=== PATIENT | female | born 1985 | race Caucasian/White ===

== ENCOUNTER 2018-10-11 22:52 | Emergency (ER) | payer SELFPAY ==
--- NOTE | 2018-10-11 22:57 | NUR ---
2257---PT CALLED TO BE TRIAGED, PT STATES WAIT IS TOO LONG. PATIENT LEFT WITHOUT BEING SEEN BY DR. MAURICIO. NO FURTHER CARE PROVIDED FOR PATIENT.
== END 2018-10-11 22:57 | disposition left against medical advice (07) ==
LOC: MED 22:52
DX: K08.89 Other specified disorders of teeth and supporting structures (principal); Z53.21 Procedure and treatment not carried out due to patient leaving prior to being seen by health care provider

== ENCOUNTER 2018-10-15 17:37 | Emergency (ER) | payer SELFPAY ==
[~2018-10-15] VITALS: Ht 167.6 cm; Wt 85.3 kg
[2018-10-15 17:42] VITALS: BP 168/109
--- NOTE | 2018-10-15 17:48 | NUR ---
PT TRIAGED, FLU SWAB PERFORMED URINE CUP GIVEN
--- NOTE | 2018-10-15 19:50 | NUR ---
PT PRESENTS TO ER. AOX4 ABLE TO VERBALIZE NEEDS. CC: COUGHING 3DAYS. EVEN UNLABORED BREATHING. NO HX. NO RX. ABD PAIN 04/20. BED IN LOWEST POSITION. CONTINUE TO MONITOR.
[2018-10-15] MEDS ORDERED: KETOROLAC 60 MG/2 ML VIAL IM ONE (20:00)
[2018-10-15 20:28] VITALS: BP 168/109
--- NOTE | 2018-10-15 20:29 | NUR ---
Patient discharged with v/s stable. Written and verbal after care instructions given and explained. Patient alert, oriented and verbalized understanding of instructions. Ambulatory with steady gait. All questions addressed prior to discharge. ID band removed. Patient advised to follow up with PMD. Rx of PROMETHAZINE , MOTRIN 800MG given. Patient educated on indication of medication including possible reaction and side effects. Opportunity to ask questions provided and answered.
== END 2018-10-15 20:35 | disposition home or self-care (01) ==
LOC: MED 17:37
DX: J06.9 Acute upper respiratory infection, unspecified (principal); Z90.49 Acquired absence of other specified parts of digestive tract
CPT/HCPCS: 87804; 96372; 99283; J1885

== ENCOUNTER 2018-10-19 04:25 | Emergency (ER) | payer MEDICAID ==
[~2018-10-19] VITALS: Ht 167.6 cm; Wt 81.6 kg
[2018-10-19 04:31] VITALS: BP 151/100
--- NOTE | 2018-10-19 04:35 | NUR ---
PT TAKEN TO BED 8
--- NOTE | 2018-10-19 04:45 | NUR ---
32/F PRESENTS TO ED, C/O SORE THROAT AND PRODUCTIVE COUGH X4 DAYS, WORSENING SINCE 2 DAYS AGO. REPORTS MILD NAUSEA AND HEADACHE. PT DENIES FEVER OR VOMITING. PT REPORTS THAT SHE WAS SEEN IN [facility] 1 WEEK AGO FOR "MOUTH ABSCESS," STILL FINISHING RX PCN. DENIES MED HX
[2018-10-19] MEDS ORDERED: DEXAMETHASONE 10 MG/ML VIAL PO ONE (05:15)
[2018-10-19] MEDS ORDERED: KETOROLAC 30 MG/ML VIAL IM ONE (05:15)
[2018-10-19 06:11] VITALS: BP 147/96
== END 2018-10-19 06:11 | disposition home or self-care (01) ==
LOC: MED 04:25
DX: J02.9 Acute pharyngitis, unspecified (principal)
CPT/HCPCS: 87081; 87804; 96372; 99283; J1100; J1885

== ENCOUNTER 2018-12-26 23:05 | Emergency (ER) | payer MEDICAID ==
[~2018-12-26] VITALS: Ht 167.6 cm; Wt 85.7 kg
[2018-12-26 23:06] VITALS: BP 159/92
--- NOTE | 2018-12-26 23:09 | NUR ---
TO ED 04 WITH STEADY GAIT.
--- NOTE | 2018-12-26 23:15 | NUR ---
PT BIB SELF C/O DYSURIA AND FREQUENCY. PT STATES DYSURIA, FREQUENCY AND OLIGURIA X4 DAYS. PT STATES 6/10 PAIN W/URINATION; SUPRAPUBIC TENDERNESS UPON PALPATION. PT ACTING APPROPRIATLY. PT SPEAKING IN CLEAR AND COMPLETE SENTENCES. PMH: DENIES
[2018-12-26] MEDS ORDERED: CIPROFLOXACIN 250 MG TAB PO ONE (23:25)
[2018-12-26 23:45] VITALS: BP 148/89
--- NOTE | 2018-12-26 23:45 | NUR ---
Patient discharged with v/s stable. Patient acting appropriatly, patient states she is ready to go home. Written and verbal after care instructions given and explained. Patient alert, oriented and verbalized understanding of instructions. Ambulatory with steady gait. All questions addressed prior to discharge. ID band removed. Patient advised to follow up with PMD. Rx of Ciprofloxacin Hydrochloride given. Patient educated on indication of medication including possible reaction and side effects. Opportunity to ask questions provided and answered.
== END 2018-12-26 23:45 | disposition home or self-care (01) ==
LOC: MED 23:05
DX: N39.0 Urinary tract infection, site not specified (principal); R03.0 Elevated blood-pressure reading, without diagnosis of hypertension
CPT/HCPCS: 81002; 81025; 99283

== ENCOUNTER 2019-01-31 21:23 | Emergency (ER) | payer MEDICAID ==
[~2019-01-31] VITALS: Ht 170.2 cm; Wt 83.0 kg
[2019-01-31 21:31] VITALS: BP 153/87
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
[2019-01-31 22:11] VITALS: BP 153/87
== END 2019-01-31 22:11 | disposition home or self-care (01) ==
LOC: MED 21:23
DX: L84 Corns and callosities (principal); M79.674 Pain in right toe(s)
CPT/HCPCS: 73660; 99283

== ENCOUNTER 2019-04-18 23:08 | Emergency (ER) | payer BC, MEDICAID ==
[~2019-04-18] VITALS: Ht 170.2 cm; Wt 83.6 kg
[2019-04-18 23:13] VITALS: BP 139/91
--- NOTE | 2019-04-18 23:15 | NUR ---
TRIAGE COMPLETE. VSS. OKAY TO WAIT IN LOBBY FOR BED PLACEMENT.
[2019-04-18 23:53] LABS: BILIRUBIN,URINE 1+ (NEGATIVE); BLOOD, URINE TRACE-I (NEGATIVE); COLOR,URINE YELLOW (YELLOW); LEUKOCYTE ESTERASE ,URINE 2+ (NEGATIVE); NITRITE, URINE NEGATIVE (NEGATIVE); PH,URINE 5.5 (5.0-9.0); UGLUCOSE NEGATIVE (NEGATIVE)
[2019-04-19 00:01] LABS: APPEARANCE,URINE CLOUDY (CLEAR)
[2019-04-19 00:14] LABS: RBC,URINE 0-5 /HPF (0-5)
--- NOTE | 2019-04-19 01:56 | NUR ---
33 Y/O PATIENT C/O DYSURIA, URINARY URGENCY X 3 DAYS. PATIENT STATES THAT SHE GET CHILLS WITH BURNING SENSATIONS WHEN SHE URINATES. PAIN IS A 7/10 BURNING PAIN THAT DOES NOT RADIATE. NO LOWER BACK PAIN NOTED. PATIENT TAKES MOTRIN FOR THE PAIN WITHOUT ANY RELIEF. ERMD MADE AWARE OF STATUS. SIDE RAILS X1. PMH: NONE ALLERGIES: NKDA RX:NONE
[2019-04-19] MEDS ORDERED: CEPHALEXIN 500 MG CAP PO ONE (02:35)
[2019-04-19 03:03] VITALS: BP 139/91
--- NOTE | 2019-04-19 03:03 | NUR ---
DPatient discharged with v/s stable. Written and verbal after care instructions given and explained. Patient alert, oriented and verbalized understanding of instructions. Ambulatory with steady gait. All questions addressed prior to discharge. ID band removed. Patient advised to follow up with PMD. Rx of PYRIDIUM 100MG TABLET; KEFLEX 500MG CAPSULE given. Patient educated on indication of medication including possible reaction and side effects SUCH ORANGE URINE FROM PYRIDIUM; WIPING FRONT TO BACK TO PREVENT FURTHER INFECTION, AND THE IMPORTANCE OF DRINKING WATER. Opportunity to ask questions provided and answered.
== END 2019-04-19 03:03 | disposition home or self-care (01) ==
LOC: MED 23:08
DX: N39.0 Urinary tract infection, site not specified (principal)
CPT/HCPCS: 81001; 81002; 81025; 87086; 99283

== ENCOUNTER 2019-09-08 18:08 | Emergency (ER) | payer BC ==
[~2019-09-08] VITALS: Ht 170.2 cm; Wt 77.1 kg
[2019-09-08 18:19] VITALS: BP 136/87
--- NOTE | 2019-09-08 18:25 | NUR ---
WAIT AT LOBBY.
--- NOTE | 2019-09-08 18:46 | NUR ---
PT AMBULATED TO BED
--- NOTE | 2019-09-08 18:56 | NUR ---
BIB SELF EPIGASTRIC PAIN/ N/V/D X3 DAYS. UPPER ABD PAIN 8/10, SHARP, CRAMPING. BOWEL SOUNDS NORMOACTIVE. ABD NON DISTENDED/ SOFT/ NON TENDER. CAP REFILL <3. DENIES SOB/ CP. RESP EVEN AND UNLABORED. LUNG SOUNDS CLEAR IN BILAT LOBES. AAOX4. SKIN INTACT/ DRY/ COOL. PATIENT AMBULATED TO BATHROOM TO PROVIDE URINE SAMPLE. NO PMH NKA
[2019-09-08] MEDS ORDERED: DICYCLOMINE HCL LIQUID 20 MG, ALUMINUM HYD/MAG/SIMETHICONE 30 ML, LIDOCAINE VISCOUS 2% ... PO ONE ×3 (19:05)
[2019-09-08] MEDS ORDERED: ONDANSETRON 4 MG ODT PO ONE (19:05)
[2019-09-08] MEDS ORDERED: KETOROLAC 30 MG/ML VIAL IM ONE (19:05)
[2019-09-08] MEDS ORDERED: DICYCLOMINE HCL LIQUID 10 MG/5 ML UDC ONE (19:09)
[2019-09-08] MEDS ORDERED: LIDOCAINE VISCOUS 2% 20 ML UDC ONE (19:09)
[2019-09-08] MEDS ORDERED: ALUMINUM HYD/MAG/SIMETHICONE 30 ML UDC ONE (19:09)
[2019-09-08 19:24] LABS: BASOPHILS # (AUTO) 0.1 K/uL (0.00-0.22); BASOPHILS % (AUTO) 0.8 % (0.0-2.0); EOSINOPHILS # (AUTO) 0.2 K/uL (0-0.4); EOSINOPHILS % (AUTO) 2.6 % (0.0-4.0); HEMATOCRIT 42.1 % (36-48); HEMOGLOBIN 13.7 g/dL (12.0-16.0); LYMPHOCYTES # (AUTO) 2.3 K/uL (2.5-16.5); LYMPHOCYTES % (AUTO) 32.9 % (20.5-51.1); MEAN CORPUSCULAR HEMOGLOBIN 29 pg (27-31); MEAN CORPUSCULAR HGB CONC 33 g/dL (33-37); MEAN CORPUSCULAR VOLUME 88.4 fL (80-94); MONOCYTES # (AUTO) 0.6 K/uL (0.8-1.0); MONOCYTES % (AUTO) 8.5 % (1.7-9.3); NEUTROPHILS # (AUTO) 3.8 K/uL (1.8-7.7); NEUTROPHILS % (AUTO) 55.2 % (42.2-75.2); PLATELET COUNT (AUTO) 282 K/uL (140-450); RED BLOOD CELL COUNT(AUTO) 4.76 MIL/uL (4.20-5.40); RED CELL DISTRIBUTION WIDTH 12.5 % (11.6-13.7)
[2019-09-08 19:36] LABS: APPEARANCE,URINE CLOUDY (CLEAR); BILIRUBIN,URINE NEGATIVE (NEGATIVE); BLOOD, URINE NEGATIVE (NEGATIVE); COLOR,URINE AMBER (YELLOW); LEUKOCYTE ESTERASE ,URINE TRACE (NEGATIVE); NITRITE, URINE NEGATIVE (NEGATIVE); UGLUCOSE NEGATIVE (NEGATIVE)
[2019-09-08 19:40] LABS: BARBITURATE, URINE NEG. ng/ml (NEG <=200); BENZODIAZEPINE, URINE NEG. ng/mL (NEG <=200); CANNABINOID, URINE NEG. ng/mL (NEG <=50); COCAINE, URINE NEG. ng/mL (NEG <=300); OPIATE, URINE NEG. ng/mL (NEG <=2000); PHENCYCLIDINE SCREEN,URINE NEG. ng/mL (NEG <=25)
[2019-09-08 19:44] LABS: ALBUMIN 3.6 g/dL (3.4-5.0); ANION GAP 11.2 (8-16); CARBON DIOXIDE 30.9 mmol/L (21-32); POTASSIUM 4.1 mmol/L (3.5-5.1); TOTAL BILIRUBIN 0.1 mg/dL (0.0-1.0)
[2019-09-08 19:45] LABS: RBC,URINE 0-5 /HPF (0-5)
[2019-09-08 20:24] VITALS: BP 135/79
--- NOTE | 2019-09-08 20:25 | NUR ---
Patient discharged with v/s stable. Written and verbal after care instructions given and explained. Patient alert, oriented and verbalized understanding of instructions. Ambulatory with steady gait. All questions addressed prior to discharge. ID band removed. Patient advised to follow up with PMD. Rx of MYLANTA given. Patient educated on indication of medication including possible reaction and side effects. Opportunity to ask questions provided and answered.
== END 2019-09-08 20:25 | disposition home or self-care (01) ==
LOC: MED 18:08
DX: R11.2 Nausea with vomiting, unspecified (principal); R10.13 Epigastric pain; F15.10 Other stimulant abuse, uncomplicated; Z90.49 Acquired absence of other specified parts of digestive tract
CPT/HCPCS: 36415; 80053; 80305; 81001; 81025; 83690; 85025; 87086; 96372; 99283; J1885; Q0162

== ENCOUNTER 2019-09-10 21:00 | Emergency (ER) | payer BC ==
[~2019-09-10] VITALS: Ht 172.7 cm; Wt 84.8 kg
[2019-09-10 21:25] VITALS: BP 139/96
--- NOTE | 2019-09-10 21:30 | NUR ---
PT AMBULATED TO LOBBY
--- NOTE | 2019-09-10 22:12 | NUR ---
33 Y/O FEMALE PRESENTS TO ED, C/O TOOTH PAIN. PT STATES HAVING TOOTH EXTRACTED YESTERDAY. PT WAS RX MOTRIN 800 BUT NO RELIEF FOR PAIN. PAIN DOES NOT RADIATE. PT STATES PAIN IS 10/10, THROBBING. NO SOB/DIFFICULTY BREATHING NOTED. PT STABLE CONDITION. ALL QUESTIONS ANSWERED.
[2019-09-10] MEDS ORDERED: BUPIVACAINE-MPF 0.25% 30 ML VIAL INJ STA (23:48)
[2019-09-11 02:08] VITALS: BP 131/99
--- NOTE | 2019-09-11 02:08 | NUR ---
PT DISCHARGED WITH PAPERWORK. EDUCATED PT REGARDING MEDICATIONS AND D/C INSTRUCTIONS. PT VERBALIZED UNDERSTANDING OF TEACHING. TOLD PT TO FOLLOW UP WITH PCP AND WHEN TO RETURN TO ED. PT STABLE CONDITION. ALL QUESTIONS ANSWERED.
== END 2019-09-11 02:08 | disposition home or self-care (01) ==
LOC: MED 21:00
DX: K08.89 Other specified disorders of teeth and supporting structures (principal)
CPT/HCPCS: 99283; J3490

== ENCOUNTER 2019-09-13 15:26 | Emergency (ER) | payer BC ==
[~2019-09-13] VITALS: Ht 172.7 cm; Wt 81.6 kg
[2019-09-13 15:46] VITALS: BP 127/92
--- NOTE | 2019-09-13 15:52 | NUR ---
33 Y/O F C/C MEDICATION REFILL NORCO 5MG DUE TO DENTAL SX DONE TWO DAYS AGO, PER PT NOTHING WAS GIVEN AT THE DENTIST. PT NKA. HX NO. RX NO. NO N/V/D.
[2019-09-13] MEDS ORDERED: KETOROLAC 30 MG/ML VIAL IM ONE (17:40)
[2019-09-13 17:49] VITALS: BP 127/92
--- NOTE | 2019-09-13 17:50 | NUR ---
Patient discharged with v/s stable. Written and verbal after care instructions given and explained. Patient alert, oriented and verbalized understanding of instructions. Ambulatory with steady gait. All questions addressed prior to discharge. ID band removed. Patient advised to follow up with PMD. Rx of NORCO,IBUPROFEN given. Patient educated on indication of medication including possible reaction and side effects. Opportunity to ask questions provided and answered.
== END 2019-09-13 17:50 | disposition home or self-care (01) ==
LOC: MED 15:26
DX: K08.89 Other specified disorders of teeth and supporting structures (principal); G89.18 Other acute postprocedural pain; Z76.0 Encounter for issue of repeat prescription
CPT/HCPCS: 96372; 99283; J1885

== ENCOUNTER 2020-02-28 15:42 | Emergency (ER) | payer BC ==
[~2020-02-28] VITALS: Ht 165.1 cm; Wt 85.7 kg
[2020-02-28 15:47] VITALS: BP 150/95
--- NOTE | 2020-02-28 15:50 | NUR ---
Pt ambulated to lobby
--- NOTE | 2020-02-28 16:45 | NUR ---
PT SEEN AND EVALUATED BY PA, NO NURSING INTERVENTIONS NOTED
[2020-02-28 16:58] VITALS: BP 150/95
--- NOTE | 2020-02-28 16:58 | NUR ---
Patient discharged with v/s stable. Written and verbal after care instructions given and explained. Patient alert, oriented and verbalized understanding of instructions. Ambulatory with steady gait. All questions addressed prior to discharge. ID band removed. Patient advised to follow up with PMD. Rx of TRAMADOL, ZYRTEC given. Patient educated on indication of medication including possible reaction and side effects. Opportunity to ask questions provided and answered.
== END 2020-02-28 16:58 | disposition home or self-care (01) ==
LOC: MED 15:42
DX: M26.609 Unspecified temporomandibular joint disorder, unspecified side (principal); J30.9 Allergic rhinitis, unspecified; F17.200 Nicotine dependence, unspecified, uncomplicated; Z90.49 Acquired absence of other specified parts of digestive tract
CPT/HCPCS: 99283

== ENCOUNTER 2020-02-29 00:03 | Emergency (ER) | payer BC ==
[~2020-02-29] VITALS: Ht 170.2 cm; Wt 86.6 kg
[2020-02-29 00:08] VITALS: BP 156/83
--- NOTE | 2020-02-29 00:11 | NUR ---
PT AMBULATED TO BED #7
--- NOTE | 2020-02-29 00:12 | NUR ---
34 Y/O FEMALE C/O TOOTH PAIN. CAME IN TO THE ED EARLIER THIS AM AND REFUSED PAIN SHOT. TOOTH PAIN WAS WORSENING, THROBBING 10/10 PAIN THROUGHOUT THE NIGHT. PT ALSO STATED SHE HAS ITCHY "BUMPS AND RED SPOTS" THROUGHOUT HER BODY. NOTED ON HER ABDOMEN, BUE/BLE. PT ALSO TOOK AN IBUPROFEN, WHICH HAD NO RELIEF. PMH: DENIES NKA
--- NOTE | 2020-02-29 00:24 | NUR ---
Dr. Castro examining patient.
[2020-02-29] MEDS ORDERED: MORPHINE SULFATE 4 MG/ML SYR IM ONE (00:30)
[2020-02-29] MEDS ORDERED: CLINDAMYCIN 150 MG CAP PO ONE (00:30)
[2020-02-29 00:55] VITALS: BP 156/83
--- NOTE | 2020-02-29 00:55 | NUR ---
Patient discharged with v/s stable. Written and verbal after care instructions given and explained. Patient alert, oriented and verbalized understanding of instructions. Ambulatory with steady gait. All questions addressed prior to discharge. ID band removed. Patient advised to follow up with PMD. Rx of CLINDAMYCIN given. Patient educated on indication of medication including possible reaction and side effects. Opportunity to ask questions provided and answered.
== END 2020-02-29 00:55 | disposition home or self-care (01) ==
LOC: MED 00:03
DX: R68.84 Jaw pain (principal); K04.7 Periapical abscess without sinus
CPT/HCPCS: 96372; 99283; J2270

== ENCOUNTER 2020-02-29 07:00 | Emergency (ER) | payer BC ==
[~2020-02-29] VITALS: Ht 170.2 cm; Wt 81.6 kg
[2020-02-29 07:12] VITALS: BP 152/90
--- NOTE | 2020-02-29 07:15 | NUR ---
PT AMBULATED TO ER BED 11
--- NOTE | 2020-02-29 07:23 | NUR ---
34 Y/O F C/C RIGHT MANDIBLE PAIN X 1 WEEK. PER PT 05/20 PAIN, SHARP SENSATION, RADIATING TO THE RIGHT EAR, TALKING EXARCERBATES, NOTHING ALLEVIATES. DENIES TRAUMA. PT IN [facility] ER YESTERDAY FOR SAME C/C. NKA. NO HX. NO RX. NO NVD. SIDE RAIL X1.
[2020-02-29] MEDS ORDERED: CLINDAMYCIN 150 MG CAP PO ONE (07:40)
[2020-02-29] MEDS ORDERED: ONDANSETRON 4 MG ODT PO ONE (07:40)
[2020-02-29] MEDS ORDERED: oxyCODONE/APAP 5/325 MG 1 TAB TAB PO ONE (07:40)
[2020-02-29 08:06] VITALS: BP 142/84
--- NOTE | 2020-02-29 08:06 | NUR ---
Patient discharged with v/s stable. Written and verbal after care instructions given and explained. Patient alert, oriented and verbalized understanding of instructions. Ambulatory with steady gait. All questions addressed prior to discharge. ID band removed. Patient advised to follow up with PMD. Rx of PERCOCET given. Patient educated on indication of medication including possible reaction and side effects. Opportunity to ask questions provided and answered.
== END 2020-02-29 08:06 | disposition home or self-care (01) ==
LOC: MED 07:00
DX: K04.7 Periapical abscess without sinus (principal)
CPT/HCPCS: 99284; Q0162

== ENCOUNTER 2020-02-29 17:59 | Emergency (ER) | payer BC ==
[~2020-02-29] VITALS: Ht 170.2 cm; Wt 85.3 kg
[2020-02-29 18:12] VITALS: BP 163/100
--- NOTE | 2020-02-29 19:45 | NUR ---
PT AMBULATED TO BED 12 WITH STEADY GAIT
[2020-02-29 19:49] VITALS: BP 163/100
--- NOTE | 2020-02-29 19:56 | NUR ---
34 Y/O FEMALE C/O RIGHT EAR PAIN X 1 WEEK THAT IS THROBBING/STABBING/CONSTANT; PT SAW DENTIST RIGHT SIDE OF TEETH NEED DENTAL WORK BUT NO APPT UNTIL DENTIST INS IS AUTHORIZED, SO PT'S RIGHT EAR HAS BEEN IN PAIN; NO OTC PAIN MEDS TAKEN PRIOR TO ED ARRIVAL PER PT ; DENIES N/V/D; SKIN IS PINK/WARM/DRY; AAOX4 WITH EVEN AND STEADY GAIT;HR EVEN AND REGULAR; PT DENIES ANY FEVER, CP, SOB, OR COUGH AT THIS TIME; PATIENT STATES PAIN OF 10/10 AT THIS TIME; VSS; PATIENT POSITIONED FOR COMFORT; HOB ELEVATED; BEDRAILS UP X1; BED DOWN AND LOCKED. PMH: PT DENIES NKA
--- NOTE | 2020-02-29 20:16 | NUR ---
Dr. Noe examining patient.
[2020-02-29] MEDS ORDERED: KETOROLAC 60 MG/2 ML VIAL IM ONE (20:20)
== END 2020-02-29 20:55 | disposition home or self-care (01) ==
LOC: MED 17:59
DX: K08.89 Other specified disorders of teeth and supporting structures (principal); Z90.49 Acquired absence of other specified parts of digestive tract
CPT/HCPCS: 96372; 99283; J1885

== ENCOUNTER 2020-03-02 00:20 | Emergency (ER) | payer BC ==
[~2020-03-02] VITALS: Ht 172.7 cm; Wt 81.6 kg
[2020-03-02 00:30] VITALS: BP 163/107
--- NOTE | 2020-03-02 00:40 | NUR ---
PT AMBULATED TO BED 12.
--- NOTE | 2020-03-02 00:48 | NUR ---
RECEIVED A 34/F FROM TRIAGE WITH A C/O OF A TOOTHACHE. MILD SWELLING NOTED TO RIGHT SIDE OF FACE. NO DISCHARGE/DRAINAGE. PT HAS BEEN SEEN MULTIPLE TIMES AT [facility] ED FOR SIMILAR COMPLAINT. PT REPORTS SHE HASN'T FILLLED HER RX NORCO.
[2020-03-02] MEDS ORDERED: KETOROLAC 60 MG/2 ML VIAL IM ONE (00:55)
--- NOTE | 2020-03-02 01:15 | NUR ---
PT REPORTS RELIEF OF PAIN -- NOW RATES PAIN AT 5/10 AND FEELS OKAY FOR D/C.
[2020-03-02 01:21] VITALS: BP 163/107
--- NOTE | 2020-03-02 01:21 | NUR ---
Patient discharged with v/s stable. Written and verbal after care instructions given and explained. Patient verbalized understanding. Ambulatory with steady gait. All questions addressed prior to discharge. Advised to follow up with PMD.
== END 2020-03-02 01:21 | disposition home or self-care (01) ==
LOC: MED 00:20
DX: K08.89 Other specified disorders of teeth and supporting structures (principal); Z90.49 Acquired absence of other specified parts of digestive tract
CPT/HCPCS: 96372; 99283; J1885

== ENCOUNTER 2020-05-30 07:51 | Emergency (ER) | payer BC ==
[~2020-05-30] VITALS: Ht 170.2 cm; Wt 68.0 kg
[2020-05-30 07:54] VITALS: BP 144/79
--- NOTE | 2020-05-30 07:59 | NUR ---
Patient ambulated to bed 4. RN evaluating patient at bedside.
--- NOTE | 2020-05-30 08:03 | NUR ---
PT STATES THAT SHE FEELS LIKE MUCOUS IS STUCK IN HER THROAT AND UNABLE TO CLEAR IT OUT. STATES THAT HER THROAT FEELS DRY WELL.PT AOX4, AFIBRILE , AMBULATORY WITH STEADY GAIT , PINK PALPEBRAL CONJUNCTIVA ,ANICTERIC SCLERA , TONSILS NOT CONGESTED , ABLE TO SWALLOW , DENIES THROAT PAIN, N/V. , SCE , FLAT SOFT ABDOMEN. PMH- NONE RX- NONE
--- NOTE | 2020-05-30 08:06 | NUR ---
DR GONZALEZ AT BEDSIDE EVALUATING PT
[2020-05-30] MEDS ORDERED: ONDANSETRON 4 MG ODT PO ONE (08:15)
--- NOTE | 2020-05-30 08:39 | NUR ---
DR GONZALEZ AT BEDSIDE REEVALUATING PT.
[2020-05-30] MEDS ORDERED: ALUMINUM HYD/MAG/SIMETHICONE 30 ML UDC PO ONE (08:45)
[2020-05-30] MEDS ORDERED: PANTOPRAZOLE 40 MG TABEC PO ONE (08:45)
[2020-05-30] MEDS ORDERED: LIDOCAINE VISCOUS 2% 20 ML UDC PO ONE (08:45)
[2020-05-30] MEDS ORDERED: DICYCLOMINE HCL LIQUID 10 MG/5 ML UDC PO ONE (08:45)
--- NOTE | 2020-05-30 08:57 | NUR ---
PT REFUSED COCKTAIL MEDS FOR GERD , DR GONZALEZ INFORMED AND AWARE.
--- NOTE | 2020-05-30 09:08 | NUR ---
Dr. Beaver is evaluating the patient at bedside.
[2020-05-30 09:12] VITALS: BP 140/75
--- NOTE | 2020-05-30 09:13 | NUR ---
Patient discharged with v/s stable. Written and verbal after care instructions given and explained regarding GERD. Patient alert, oriented and verbalized understanding of instructions. Ambulatory with steady gait. All questions addressed prior to discharge. ID band removed. Patient advised to follow up with PMD. Rx of pantoprazole given. Patient educated on indication of medication including possible reaction and side effects. Opportunity to ask questions provided and answered.
== END 2020-05-30 09:13 | disposition home or self-care (01) ==
LOC: MED 07:51
DX: K21.9 Gastro-esophageal reflux disease without esophagitis (principal)
CPT/HCPCS: 99283; Q0162

== ENCOUNTER 2020-06-23 14:25 | Emergency (ER) | payer BC, MEDICAID ==
[~2020-06-23] VITALS: Ht 170.2 cm; Wt 86.2 kg
[2020-06-23 14:32] VITALS: BP 133/79
--- NOTE | 2020-06-23 14:38 | NUR ---
PT C/O NAUSEA AND GAMAL TEMPORAL THROBBING HEADACHE SINCE LAST NIGHT. DENIES FEVER, CHILLS, SOB, CP, COUGH, VOMITING OR DIARRHEA. PMH: CHOLECYSTECTOMY
[2020-06-23] MEDS ORDERED: ONDANSETRON 4 MG ODT PO ONE (15:30)
[2020-06-23] MEDS ORDERED: IBUPROFEN 400 MG TAB PO ONE (15:30)
[2020-06-23] MEDS ORDERED: ACETAMINOPHEN 325 MG TAB PO ONE (15:30)
[2020-06-23 16:35] VITALS: BP 118/71
== END 2020-06-23 16:35 | disposition home or self-care (01) ==
LOC: MED 14:25
DX: G44.209 Tension-type headache, unspecified, not intractable (principal); Z90.49 Acquired absence of other specified parts of digestive tract
CPT/HCPCS: 99284; Q0162

== ENCOUNTER 2020-07-05 11:17 | Emergency (ER) | payer MEDICAID ==
[~2020-07-05] VITALS: Ht 167.6 cm; Wt 79.4 kg
[2020-07-05 11:25] VITALS: BP 156/102
--- NOTE | 2020-07-05 11:30 | NUR ---
PT TAKEN TO BED 12.
--- NOTE | 2020-07-05 11:40 | NUR ---
UA COLLECTED AND PLACED IN DIRTY UTILITY ROOM.
[2020-07-05] MEDS ORDERED: ONDANSETRON 4 MG/2 ML VIAL IVP ONE ×2 (12:05→13:50)
[2020-07-05] MEDS ORDERED: NACL 0.9% 1,000 ML IV ONE (12:05)
[2020-07-05] MEDS ORDERED: FAMOTIDINE 20 MG/2 ML VIAL IVP ONE (12:05)
--- NOTE | 2020-07-05 12:23 | NUR ---
C/O OF N/V AND BODY DISCOMFORT 02/17. STATES SHE FEELS PALPITATIONS AFTER VOMITING, HR EVEN AND REGULAR, PATIENT DENIES ABDOMINAL PAIN, LAST BM YESTERDAY AND REGULAR FOR PATIENT, ABDOMEN IS NONTENDER TO PALPATION. 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
[2020-07-05 12:36] LABS: BASOPHILS # (AUTO) 0.1 K/uL (0.00-0.22); BASOPHILS % (AUTO) 0.8 % (0.0-2.0); EOSINOPHILS # (AUTO) 0.1 K/uL (0-0.4); EOSINOPHILS % (AUTO) 0.7 % (0.0-4.0); HEMATOCRIT 41.7 % (36-48); HEMOGLOBIN 13.8 g/dL (12.0-16.0); LYMPHOCYTES # (AUTO) 1.7 K/uL (2.5-16.5); LYMPHOCYTES % (AUTO) 23.2 % (20.5-51.1); MEAN CORPUSCULAR HEMOGLOBIN 29 pg (27-31); MEAN CORPUSCULAR HGB CONC 33 g/dL (33-37); MEAN CORPUSCULAR VOLUME 87.2 fL (80-94); MONOCYTES # (AUTO) 0.5 K/uL (0.8-1.0); MONOCYTES % (AUTO) 6.9 % (1.7-9.3); NEUTROPHILS % (AUTO) 68.4 % (42.2-75.2); PLATELET COUNT (AUTO) 280 K/uL (140-450); RED BLOOD CELL COUNT(AUTO) 4.78 MIL/uL (4.20-5.40); RED CELL DISTRIBUTION WIDTH 12.5 % (11.6-13.7); WHITE BLOOD COUNT (AUTO) 7.4 K/uL (4.8-10.8)
[2020-07-05 12:55] LABS: ANION GAP 12.1 (8-16); CARBON DIOXIDE 26.8 mmol/L (21-32); CREATININE 0.8 mg/dL (0.6-1.3); POTASSIUM 3.9 mmol/L (3.5-5.1); TOTAL BILIRUBIN 0.4 mg/dL (0.0-1.0)
[2020-07-05 14:20] VITALS: BP 128/87
--- NOTE | 2020-07-05 14:21 | NUR ---
Patient discharged with v/s stable. Written and verbal after care instructions given and explained. Patient alert, oriented and verbalized understanding of instructions. Ambulatory with steady gait. All questions addressed prior to discharge. ID band removed. Patient advised to follow up with PMD. Rx of ZOFRAN AND PEPCID given. Patient educated on indication of medication including possible reaction and side effects. Opportunity to ask questions provided and answered.
== END 2020-07-05 14:21 | disposition home or self-care (01) ==
LOC: MED 11:17
DX: K29.70 Gastritis, unspecified, without bleeding (principal); Z90.49 Acquired absence of other specified parts of digestive tract
CPT/HCPCS: 36415; 80053; 81025; 83690; 85025; 96361; 96374; 96375; 96376; 99284; J2405; J3490; J7030

== ENCOUNTER 2020-09-14 17:26 | Emergency (ER) | payer MEDICAID ==
[~2020-09-14] VITALS: Ht 172.7 cm; Wt 81.6 kg
[2020-09-14 17:38] VITALS: BP 171/100
--- NOTE | 2020-09-14 17:38 | NUR ---
Patient ambulated to bed 1 with family. RN evaluating the patient at bedside.
--- NOTE | 2020-09-14 17:43 | NUR ---
34 y/o female from home c/o headache and nausea x 1 day. Pt denies vomiting, 1 episode of diarrhea yesterday. Denies dizziness/blurred vision. Unknown covid contact. Awake and alert. VSS medhx: denies
[2020-09-14] MEDS: KETOROLAC 30 MG/ML VIAL IM ONE (18:18)
[2020-09-14] MEDS: ONDANSETRON 4 MG ODT PO ONE (18:19)
[2020-09-14 19:02] VITALS: BP 171/100
--- NOTE | 2020-09-14 19:03 | NUR ---
Patient discharged with v/s stable. Written and verbal after care instructions given and explained. Patient alert, oriented and verbalized understanding of instructions. Ambulatory with steady gait. All questions addressed prior to discharge. ID band removed. Patient advised to follow up with PMD. Rx of ZOFRAN AND MOTRIN given. Patient educated on indication of medication including possible reaction and side effects. Opportunity to ask questions provided and answered.
== END 2020-09-14 19:03 | disposition home or self-care (01) ==
LOC: MED 17:26
DX: R51.9 Headache, unspecified (principal); R03.0 Elevated blood-pressure reading, without diagnosis of hypertension; H53.149 Visual discomfort, unspecified
CPT/HCPCS: 81002; 81025; 96372; 99283; J1885; Q0162

== ENCOUNTER 2020-10-13 21:53 | Emergency (ER) | payer MEDICAID, OTHER ==
[~2020-10-13] VITALS: Ht 170.2 cm; Wt 81.6 kg
--- NOTE | 2020-10-13 22:15 | NUR ---
TO LOBBY AMBULATORY
--- NOTE | 2020-10-13 22:55 | NUR ---
PT AMBULATED TO BED #2
--- NOTE | 2020-10-13 23:00 | NUR ---
34 Y/O FEMALE BIB SELF COMPLAINING OF NAUSEA, VOMITING FOR 2 DAYS, NO BM FOR ONE DAY. PT VOMITED TOTAL OF 4 TIMES TODAY. DENIES ANY DIARRHEA OR STOMACH PAIN. NO PMH NKA
[2020-10-13] MEDS ORDERED: ONDANSETRON 4 MG ODT PO ONE (23:05)
[2020-10-14] MEDS ORDERED: MAG-27 PO (02:12)
[2020-10-14] MEDS ORDERED: ONDA-24 SL (02:12)
[2020-10-14 02:20] VITALS: BP 122/81
--- NOTE | 2020-10-14 02:20 | NUR ---
Patient discharged with v/s stable. Written and verbal after care instructions given and explained. Patient alert, oriented and verbalized understanding of instructions. Ambulatory with steady gait. All questions addressed prior to discharge. ID band removed. Patient advised to follow up with PMD. Rx of federico nguyen odt given. Patient educated on indication of medication including possible reaction and side effects. Opportunity to ask questions provided and answered.
== END 2020-10-14 02:20 | disposition home or self-care (01) ==
LOC: MED 21:53
DX: R11.2 Nausea with vomiting, unspecified (principal); K59.00 Constipation, unspecified; R10.13 Epigastric pain; Z79.899 Other long term (current) drug therapy
CPT/HCPCS: 81002; 81025; 99283; Q0162

== ENCOUNTER 2020-11-30 15:23 | Emergency (ER) | payer OTHER ==
[~2020-11-30] VITALS: Ht 175.3 cm; Wt 76.7 kg
[~2020-11-30 15:23] MED LIST: MAG-27 PO; ONDA-24 SL
[2020-11-30 15:28] VITALS: BP 151/104
[2020-11-30 16:18] LABS: BASOPHILS # (AUTO) 0.1 K/uL (0.00-0.22); BASOPHILS % (AUTO) 0.7 % (0.0-2.0); EOSINOPHILS # (AUTO) 0.2 K/uL (0-0.4); EOSINOPHILS % (AUTO) 2.6 % (0.0-4.0); HEMATOCRIT 40.3 % (36-48); HEMOGLOBIN 13.5 g/dL (12.0-16.0); LYMPHOCYTES # (AUTO) 1.7 K/uL (2.5-16.5); LYMPHOCYTES % (AUTO) 23.2 % (20.5-51.1); MEAN CORPUSCULAR HEMOGLOBIN 29 pg (27-31); MEAN CORPUSCULAR HGB CONC 34 g/dL (33-37); MEAN CORPUSCULAR VOLUME 87.3 fL (80-94); MONOCYTES # (AUTO) 0.7 K/uL (0.8-1.0); MONOCYTES % (AUTO) 9.4 % (1.7-9.3); NEUTROPHILS # (AUTO) 4.8 K/uL (1.8-7.7); NEUTROPHILS % (AUTO) 64.1 % (42.2-75.2); PLATELET COUNT (AUTO) 274 K/uL (140-450); RED BLOOD CELL COUNT(AUTO) 4.61 MIL/uL (4.20-5.40); RED CELL DISTRIBUTION WIDTH 12.7 % (11.6-13.7); WHITE BLOOD COUNT (AUTO) 7.5 K/uL (4.8-10.8)
--- NOTE | 2020-11-30 16:26 | NUR ---
CALLED FOR PATIENT, NO ANSWER
[2020-11-30 16:43] LABS: ALBUMIN 3.9 g/dL (3.4-5.0); ANION GAP 6.2 (8-16); CARBON DIOXIDE 31.6 mmol/L (21-32); CREATININE 0.9 mg/dL (0.6-1.3); POTASSIUM 3.8 mmol/L (3.5-5.1); TOTAL BILIRUBIN 0.3 mg/dL (0.0-1.0)
--- NOTE | 2020-11-30 17:16 | NUR ---
PATIENT AMBULATED TO BED 2 WITH STEADY GAIT REQUESTING MEDICATION FOR NAUSEA
[2020-11-30] MEDS ORDERED: ONDANSETRON 4 MG ODT PO ONE ×2 (17:40→18:10)
[2020-11-30] MEDS ORDERED: DICYCLOMINE HCL LIQUID 20 MG, ALUMINUM HYD/MAG/SIMETHICONE 30 ML, LIDOCAINE VISCOUS 2% ... PO ONE ×3 (17:40)
[2020-11-30] MEDS ORDERED: ONDA4TAB PO (17:44)
[2020-11-30] MEDS ORDERED: OMEP40EC24 PO (17:44)
--- NOTE | 2020-11-30 17:47 | NUR ---
Patient discharged with v/s stable. Written and verbal after care instructions given and explained. Patient alert, oriented and verbalized understanding of instructions. Ambulatory with steady gait. All questions addressed prior to discharge. ID band removed. Patient advised to follow up with PMD. Rx of METFORMIN given. Patient educated on indication of medication including possible reaction and side effects. Opportunity to ask questions provided and answered. Addendum: 11/30/20 at 1747 by [email or web address] WRONG PATIENT
[2020-11-30 17:52] LABS: APPEARANCE,URINE SL CLOUDY (CLEAR); BILIRUBIN,URINE NEGATIVE (NEGATIVE); BLOOD, URINE TRACE-L (NEGATIVE); COLOR,URINE YELLOW (YELLOW); LEUKOCYTE ESTERASE ,URINE NEGATIVE (NEGATIVE); NITRITE, URINE NEGATIVE (NEGATIVE); UGLUCOSE NEGATIVE (NEGATIVE)
[2020-11-30] MEDS ORDERED: LIDOCAINE VISCOUS 2% 20 ML UDC ONE (18:02)
[2020-11-30] MEDS ORDERED: DICYCLOMINE HCL LIQUID 10 MG/5 ML UDC ONE (18:02)
[2020-11-30] MEDS ORDERED: ALUMINUM HYD/MAG/SIMETHICONE 30 ML UDC ONE (18:02)
--- NOTE | 2020-11-30 18:05 | NUR ---
PT REFUSED TAKING THE GI COCKTAIL AND TOOK DR JANET ANNE.
[2020-11-30 18:37] VITALS: BP 151/104
--- NOTE | 2020-11-30 18:37 | NUR ---
Patient discharged with v/s stable. Written and verbal after care instructions given and explained. Patient alert, oriented and verbalized understanding of instructions. with steady gait. All questions addressed prior to discharge. ID band removed. Patient advised to follow up with PMD. Rx of OMEPRAZOLE, ONDASTERON given. Patient educated on indication of medication including possible reaction and side effects. Opportunity to ask questions provided and answered.
[2020-11-30 18:56] LABS: WBC,URINE 0-5 /HPF (0-5)
== END 2020-11-30 18:37 | disposition home or self-care (01) ==
LOC: MED 15:23
DX: K29.70 Gastritis, unspecified, without bleeding (principal); Z79.899 Other long term (current) drug therapy
CPT/HCPCS: 36415; 80053; 81001; 81025; 83690; 85025; 99283; Q0162

== ENCOUNTER 2021-02-09 13:16 | Emergency (ER) | payer OTHER ==
[~2021-02-09] VITALS: Ht 170.2 cm; Wt 81.6 kg
[~2021-02-09 13:16] MED LIST changes: +OMEP40EC24 PO; +ONDA4TAB PO
[2021-02-09 13:34] VITALS: BP 154/89
--- NOTE | 2021-02-09 13:42 | NUR ---
pt ambulated to bed 01.
--- NOTE | 2021-02-09 13:42 | NUR ---
patient ambulated to the bathroom for urine collection
--- NOTE | 2021-02-09 13:42 | NUR ---
patient ambulated to bed 1
--- NOTE | 2021-02-09 13:46 | NUR ---
35 Y/O F BIB BOYFRIEND FROM HOME, C/O UTI SYMPTOMS FOR 4 DAYS, HAS BEEN HAVING DYSURIA, INCREASED URGENCY, INCREASED PAIN STANDING AND WALKING. DENIES N/V/D, ABD PAIN. HAS ALSO HAD BLISTER IN MOUTH, SENSITIVE AND UNABLE TO EAT DUE TO PAIN. 8/10 PAIN THAT FEELS SWOLLEN AND BURNING IN SUPRAPUBIC AREA. AAOX4. VSS. PMH: GALL BLADDER REMOVAL MED: PT HAS BEEN TAKING MEDICATION NKA
[2021-02-09] MEDS ORDERED: ONDANSETRON 4 MG ODT PO ONE (14:15)
[2021-02-09] MEDS ORDERED: IBUPROFEN 600 MG TAB PO ONE (14:15)
[2021-02-09] MEDS ORDERED: IBUP-2213 PO (14:43)
[2021-02-09] MEDS ORDERED: PYR100 PO (14:43)
[2021-02-09] MEDS ORDERED: CEPH-588 PO (14:43)
[2021-02-09] MEDS ORDERED: ONDA-24 PO (14:44)
[2021-02-09 14:51] VITALS: BP 154/89
--- NOTE | 2021-02-09 14:51 | NUR ---
Patient discharged with v/s stable. Written and verbal after care instructions given and explained. Patient alert, oriented and verbalized understanding of instructions. Ambulatory with steady gait. All questions addressed prior to discharge. ID band removed. Patient advised to follow up with PMD. Rx of KEFLEX,ZOFRAN ODT,PYRIDIUM given. Patient educated on indication of medication including possible reaction and side effects. Opportunity to ask questions provided and answered.
== END 2021-02-09 14:51 | disposition home or self-care (01) ==
LOC: MED 13:16
DX: N39.0 Urinary tract infection, site not specified (principal); K12.0 Recurrent oral aphthae; R03.0 Elevated blood-pressure reading, without diagnosis of hypertension; Z79.899 Other long term (current) drug therapy; Z98.890 Other specified postprocedural states
CPT/HCPCS: 81002; 81025; 99283; Q0162; 87086

== ENCOUNTER 2021-03-01 15:43 | Emergency (ER) | payer OTHER ==
[~2021-03-01] VITALS: Ht 162.6 cm; Wt 65.8 kg
[~2021-03-01 15:43] MED LIST changes: +CEPH-588 PO; +IBUP-2213 PO; +ONDA-24 PO; +PYR100 PO
[2021-03-01 15:58] VITALS: BP 149/88
--- NOTE | 2021-03-01 17:20 | NUR ---
PT AMBULATED TO BED 07
--- NOTE | 2021-03-01 17:21 | NUR ---
35 YO FEMALE C/O NAUSEA X2DAYS, HAS NOT TAKEN ANY OTC MEDICATION FOR RELIEF. DENIES VOMITING, DENIES PAIN, ABDOMEN FLAT, SOFT, AND NON TENDER. PATIENT STATES, GALLBLADDER WAS REMOVED IN 2006. PT IS A&OX4, RESPIRATIONS EVEN AND UNLABORED. PMH: DENIES NKDA
--- NOTE | 2021-03-01 17:41 | NUR ---
XAVI LAIRD AT BEDSIDE EXAMINING PT
[2021-03-01] MEDS ORDERED: ONDANSETRON 4 MG ODT PO ONE (17:50)
[2021-03-01] MEDS ORDERED: OMEP20EC11 PO (18:29)
[2021-03-01] MEDS ORDERED: ONDA-24 SL (18:29)
[2021-03-01 19:00] VITALS: BP 149/88
--- NOTE | 2021-03-01 19:00 | NUR ---
Patient discharged with v/s stable. Written and verbal after care instructions given and explained. Patient alert, oriented and verbalized understanding of instructions. Ambulatory with steady gait. All questions addressed prior to discharge. ID band removed. Patient advised to follow up with PMD. Rx of PRILOSEC,ZOFRAN ODT given. Patient educated on indication of medication including possible reaction and side effects. Opportunity to ask questions provided and answered.
== END 2021-03-01 19:00 | disposition home or self-care (01) ==
LOC: MED 15:43
DX: R11.0 Nausea (principal); Z79.899 Other long term (current) drug therapy
CPT/HCPCS: 81002; 81025; 99283; Q0162

== ENCOUNTER 2021-04-10 13:51 | Emergency (ER) | payer OTHER, SELFPAY ==
[~2021-04-10] VITALS: Ht 170.2 cm; Wt 81.6 kg
[~2021-04-10 13:51] MED LIST changes: +OMEP20EC11 PO
[2021-04-10 14:55] VITALS: BP 135/90
--- NOTE | 2021-04-10 15:05 | NUR ---
TENT3
--- NOTE | 2021-04-10 15:46 | NUR ---
BIB SELF C/O 8 SORE THROAT, COUGH X YESTERDAY.
[2021-04-10] MEDS ORDERED: ONDANSETRON 4 MG ODT PO ONE (16:05)
[2021-04-10] MEDS ORDERED: IBUP-1842 PO (16:12)
[2021-04-10] MEDS ORDERED: ONDA-24 SL (16:12)
[2021-04-10] MEDS ORDERED: LORA10TA19 PO (16:12)
--- NOTE | 2021-04-10 16:19 | NUR ---
Nikita mcintosh in [facility] - 04/10/21 at 1622 by [email or web address] COVID BEVERLY SWAB DONE.
--- NOTE | 2021-04-10 16:25 | NUR ---
PT REFUSED FOR COVID TEST.
--- NOTE | 2021-04-10 16:26 | NUR ---
PT REFUSED FOR COVID TEST. NOTIFIED XAVI SCHMITT.
[2021-04-10 16:29] VITALS: BP 135/90
--- NOTE | 2021-04-10 16:29 | NUR ---
Patient discharged with v/s stable. Written and verbal after care instructions given and explained. Patient alert, oriented and verbalized understanding of instructions. Ambulatory with steady gait. All questions addressed prior to discharge. ID band removed. Patient advised to follow up with PMD. Rx of MOTRIN, CLAEITIN & ZOFRAN given. Patient educated on indication of medication including possible reaction and side effects. Opportunity to ask questions provided and answered.
== END 2021-04-10 16:29 | disposition home or self-care (01) ==
LOC: MED 13:51
DX: J02.9 Acute pharyngitis, unspecified (principal); Z20.822 Contact with and (suspected) exposure to COVID-19; Z90.49 Acquired absence of other specified parts of digestive tract; Z79.899 Other long term (current) drug therapy
CPT/HCPCS: 99283; Q0162

== ENCOUNTER 2021-04-15 15:55 | Emergency (ER) | payer OTHER, SELFPAY ==
[~2021-04-15] VITALS: Ht 172.7 cm; Wt 81.6 kg
[~2021-04-15 15:55] MED LIST changes: +IBUP-1842 PO; +LORA10TA19 PO
[2021-04-15 16:03] VITALS: BP 105/50
--- NOTE | 2021-04-15 16:05 | NUR ---
C/O COUGH, NICHOLS, 7/10 SORE THROAT, LOSS OF TASTE/ SMEEL X 6 DAYS. SEEN HERE FOR PHARYNGITIS 04/10/21. DAUGHTER HAS COVID TESTED POSITIVE TODAY. PMH: DENIES
[2021-04-15] MEDS ORDERED: PHEN177S23 PO (16:56)
[2021-04-15] MEDS ORDERED: NAPR-54 PO (16:56)
[2021-04-15] MEDS ORDERED: PROM118S5 PO (16:56)
--- NOTE | 2021-04-15 17:18 | NUR ---
Patient discharged with v/s stable. Written and verbal after care instructions given and explained. Patient alert, oriented and verbalized understanding of instructions. Ambulatory with steady gait. All questions addressed prior to discharge. ID band removed. Patient advised to follow up with PMD. Rx of NAPROSYN,PHENOL & PROMETHAZINE given. Patient educated on indication of medication including possible reaction and side effects. Opportunity to ask questions provided and answered.
[2021-04-15 17:19] VITALS: BP 105/50
== END 2021-04-15 17:18 | disposition home or self-care (01) ==
LOC: MED 15:55
DX: U07.1 COVID-19 (principal); Z79.899 Other long term (current) drug therapy
CPT/HCPCS: 99283

== ENCOUNTER 2021-10-05 17:43 | Emergency (ER) | payer OTHER, SELFPAY ==
[~2021-10-05] VITALS: Ht 170.2 cm; Wt 79.1 kg
[~2021-10-05 17:43] MED LIST changes: +NAPR-54 PO; +ONDA-188 PO; +ONDA-188 SL; -ONDA-24 PO; -ONDA-24 SL; +PHEN177S23 PO; +PROM118S5 PO
[2021-10-05 17:52] VITALS: BP 141/81
[2021-10-05] MEDS ORDERED: CEPH-588 PO ×2 (18:49→19:03)
[2021-10-05] MEDS ORDERED: FLUC150T PO ×2 (18:49→19:03)
[2021-10-05] MEDS ORDERED: GYNLOTC VG ×2 (18:49→19:03)
[2021-10-05 18:57] VITALS: BP 141/81
== END 2021-10-05 18:57 | disposition home or self-care (01) ==
LOC: MED 17:43
DX: N39.0 Urinary tract infection, site not specified (principal); N76.0 Acute vaginitis; Z11.3 Encounter for screening for infections with a predominantly sexual mode of transmission; Z79.899 Other long term (current) drug therapy; Z79.2 Long term (current) use of antibiotics; Z79.1 Long term (current) use of non-steroidal anti-inflammatories (NSAID)
CPT/HCPCS: 36415; 81002; 81025; 86592; 86803; 87070; 87210; 87491; 99284

== ENCOUNTER 2021-10-18 18:56 | Emergency (ER) | payer OTHER ==
[~2021-10-18] VITALS: Ht 170.2 cm; Wt 72.6 kg
[~2021-10-18 18:56] MED LIST changes: +FLUC150T PO; +GYNLOTC VG
[2021-10-18 19:15] VITALS: BP 141/90
--- NOTE | 2021-10-18 19:15 | NUR ---
HEADACHE X 3 DAYS. PAIN IS ON RIGHT SIDE OF HEAD. (-) PHOTOPHOBIA. "MY BONE NEAR MY JAW IS WHERE THE PAIN IS AND IT GOES UP FROM THERE" "EVERY TIME I OPEN MY MOUTH, IT CRACKS"
[2021-10-18] MEDS ORDERED: IBUPROFEN 600 MG TAB PO ONE (20:35)
[2021-10-18] MEDS ORDERED: CYCL-711 PO (20:35)
[2021-10-18] MEDS ORDERED: diazePAM 5 MG TAB PO ONE (20:35)
[2021-10-18] MEDS ORDERED: IBUP-2213 PO (20:35)
[2021-10-18 21:15] VITALS: BP 141/90
--- NOTE | 2021-10-18 21:19 | NUR ---
Patient discharged with v/s stable. Written and verbal after care instructions given and explained. Patient alert, oriented and verbalized understanding of instructions. Ambulatory with steady gait. All questions addressed prior to discharge. ID band removed. Patient advised to follow up with PMD. Rx of motrin, and flexeril given. Patient educated on indication of medication including possible reaction and side effects. Opportunity to ask questions provided and answered.
== END 2021-10-18 21:19 | disposition home or self-care (01) ==
LOC: MED 18:56
DX: M26.621 Arthralgia of right temporomandibular joint (principal); Z79.899 Other long term (current) drug therapy; Z98.890 Other specified postprocedural states
CPT/HCPCS: 99283

== ENCOUNTER 2021-12-05 17:44 | Emergency (ER) | payer OTHER ==
[~2021-12-05] VITALS: Ht 170.2 cm; Wt 72.6 kg
[~2021-12-05 17:44] MED LIST changes: +CYCL-711 PO
[2021-12-05 17:54] VITALS: BP 144/76
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
[2021-12-05] MEDS ORDERED: ACETAMINOPHEN EXTRA STRENGTH 500 MG TAB PO ONE (18:55)
== END 2021-12-05 18:58 | disposition home or self-care (01) ==
LOC: MED 17:44
DX: M25.511 Pain in right shoulder (principal); Z79.899 Other long term (current) drug therapy
CPT/HCPCS: 73030; 99283

== ENCOUNTER 2022-03-05 16:09 | Emergency (ER) | payer OTHER ==
[~2022-03-05] VITALS: Ht 170.2 cm; Wt 73.7 kg
[2022-03-05 16:22] VITALS: BP 139/74
[2022-03-05] MEDS ORDERED: ONDANSETRON 4 MG ODT PO ONE (17:45)
--- NOTE | 2022-03-05 17:46 | NUR ---
PT AMB TO BED 9.
[2022-03-05 17:53] LABS: BASOPHILS # (AUTO) 0.1 K/uL (0.00-0.22); BASOPHILS % (AUTO) 0.7 % (0.0-2.0); EOSINOPHILS # (AUTO) 0.1 K/uL (0-0.4); EOSINOPHILS % (AUTO) 1.6 % (0.0-4.0); HEMATOCRIT 40.8 % (36-48); HEMOGLOBIN 13.6 g/dL (12.0-16.0); LYMPHOCYTES # (AUTO) 2.7 K/uL (2.5-16.5); LYMPHOCYTES % (AUTO) 33.1 % (20.5-51.1); MEAN CORPUSCULAR HEMOGLOBIN 30 pg (27-31); MEAN CORPUSCULAR HGB CONC 33 g/dL (33-37); MEAN CORPUSCULAR VOLUME 90.2 fL (80-94); MONOCYTES # (AUTO) 0.7 K/uL (0.8-1.0); MONOCYTES % (AUTO) 8.3 % (1.7-9.3); NEUTROPHILS # (AUTO) 4.5 K/uL (1.8-7.7); NEUTROPHILS % (AUTO) 56.3 % (42.2-75.2); PLATELET COUNT (AUTO) 265 K/uL (140-450); RED BLOOD CELL COUNT(AUTO) 4.53 MIL/uL (4.20-5.40); RED CELL DISTRIBUTION WIDTH 13.1 % (11.6-13.7)
--- NOTE | 2022-03-05 18:00 | NUR ---
36 Y/O FEMALE C/O ABD PAIN AND NAUSEA TODAY. PT REPORTS SHE WAS SLEEPING THIS MORNING WHEN SHE WOKE UP WITH SHARP PAIN TO HER MID ABD RADIATING TO HER UPPER BACK. PT REPORTS DIARRHEA SINCE YESTERDAY. DENIES VOMITING. ABD PAINFUL TO TOUCH. BOWEL SOUNDS HEARD IN ALL QUADRANTS. AOX 4. RESPIRATIONS EVEN AND UNLABORED. NKA PMG: PNEUMONIA, GALLBLADDER REMOVAL, HTN
[2022-03-05 18:18] VITALS: BP 118/72
[2022-03-05 18:30] LABS: APPEARANCE,URINE CLEAR (CLEAR); BILIRUBIN,URINE NEGATIVE (NEGATIVE); BLOOD, URINE NEGATIVE (NEGATIVE); COLOR,URINE YELLOW (YELLOW); LEUKOCYTE ESTERASE ,URINE NEGATIVE (NEGATIVE); NITRITE, URINE NEGATIVE (NEGATIVE); UGLUCOSE NEGATIVE (NEGATIVE)
[2022-03-05 18:30] LABS: ALBUMIN 4.1 g/dL (3.4-5.0); ANION GAP 11.7 (8-16); CARBON DIOXIDE 27.4 mmol/L (21-32); CREATININE 0.8 mg/dL (0.6-1.3); POTASSIUM 4.1 mmol/L (3.5-5.1); TOTAL BILIRUBIN 0.3 mg/dL (0.0-1.0)
[2022-03-05] MEDS ORDERED: KETOROLAC 30 MG/ML VIAL IM ONE (18:55)
[2022-03-05] MEDS ORDERED: BEN10 PO (18:57)
[2022-03-05] MEDS ORDERED: ONDA-188 SL (18:57)
--- NOTE | 2022-03-05 19:27 | NUR ---
Patient discharged with v/s stable. Written and verbal after care instructions given and explained. Patient alert, oriented and verbalized understanding of instructions. Ambulatory with steady gait. All questions addressed prior to discharge. ID band removed. Patient advised to follow up with PMD. Rx of DICYCLOMINE HYDROCHLORIDE AND ONDANSETRON given. Patient educated on indication of medication including possible reaction and side effects. Opportunity to ask questions provided and answered.
== END 2022-03-05 19:25 | disposition home or self-care (01) ==
LOC: MED 16:09
DX: R10.13 Epigastric pain (principal); Z90.49 Acquired absence of other specified parts of digestive tract
CPT/HCPCS: 36415; 80053; 81003; 81025; 83690; 85025; 96372; 99283; J1885; Q0162

== ENCOUNTER 2023-01-11 18:05 | Emergency (ER) | payer OTHER ==
[~2023-01-11] VITALS: Ht 167.6 cm; Wt 81.6 kg
[~2023-01-11 18:05] MED LIST changes: +BEN10 PO
[2023-01-11 19:25] VITALS: BP 172/100
--- NOTE | 2023-01-11 19:35 | NUR ---
walked urine to lab
[2023-01-11] MEDS ORDERED: KETOROLAC 30 MG/ML VIAL IM ONE (19:45)
--- NOTE | 2023-01-11 20:09 | NUR ---
PT AMBULATED TO BED 5
--- NOTE | 2023-01-11 20:24 | NUR ---
37YR OLD FEMALE BIB SELF C/O HEADACHE X1DAY. R SIDED HEAD PAIN RADIATES TO NECK. THROBBING/STABBING 8/10 PAIN. PT IS A&OX4. NO VISUAL SENSETIVITY. DENIES N/V. NKDA NO MED HX
[2023-01-11] MEDS ORDERED: IBUP-1842 PO (20:45)
== END 2023-01-11 20:57 | disposition home or self-care (01) ==
LOC: MED 18:05
DX: R51.9 Headache, unspecified (principal); I10 Essential (primary) hypertension; Z79.899 Other long term (current) drug therapy
CPT/HCPCS: 81025; 96372; 99283; J1885

== ENCOUNTER 2023-03-09 19:57 | Emergency (ER) | payer OTHER ==
[~2023-03-09] VITALS: Ht 170.2 cm; Wt 78.0 kg
[2023-03-09 20:40] VITALS: BP 127/91; PULSE 105; RESP 20; TEMP 98; O2SAT 98
--- NOTE | 2023-03-09 20:56 | NUR ---
Pt went to lobby
--- NOTE | 2023-03-09 22:15 | NUR ---
Nikita mcintosh in [facility] - 03/09/23 at 2252 by MUMTAZ PT TO BED
--- NOTE | 2023-03-09 22:26 | NUR ---
Nikita mcintosh in [facility] - 03/09/23 at 2256 by MEERA LAC TRAY AND SUTURE SET UP BS
[2023-03-09] MEDS ORDERED: ACET-10509 PO (23:05)
[2023-03-09] MEDS ORDERED: IBUP-2213 PO (23:05)
== END 2023-03-09 23:17 | disposition home or self-care (01) ==
LOC: MED 19:57
DX: M79.644 Pain in right finger(s) (principal); Z48.02 Encounter for removal of sutures; I10 Essential (primary) hypertension; Z79.899 Other long term (current) drug therapy
CPT/HCPCS: 73140; 99283

== ENCOUNTER 2023-05-13 17:09 | Emergency (ER) | payer OTHER ==
[~2023-05-13] VITALS: Ht 162.6 cm; Wt 70.3 kg
[~2023-05-13 17:09] MED LIST changes: +ACET-10509 PO
[2023-05-13 17:44] VITALS: BP 133/88; PULSE 87; RESP 17; TEMP 97.9; O2SAT 98
[2023-05-13] MEDS ORDERED: hydrOXYzine PAMOATE 25 MG CAP PO STA (18:27)
[2023-05-13] MEDS ORDERED: KETOROLAC 30 MG/ML VIAL IM ONE (18:30)
[2023-05-13] MEDS ORDERED: HYDR25CA10 PO (18:31)
[2023-05-13] MEDS ORDERED: CEPH-588 PO (18:31)
[2023-05-13] MEDS ORDERED: IBUP-2213 PO (18:31)
[2023-05-13] MEDS ORDERED: ONDANSETRON 4 MG ODT PO ONE (19:15)
[2023-05-13 19:20] VITALS: O2SAT 98
[2023-05-13] MEDS ORDERED: ONDA-188 PO (19:58)
== END 2023-05-13 20:25 | disposition home or self-care (01) ==
LOC: MED 17:09
DX: R51.9 Headache, unspecified (principal); F15.90 Other stimulant use, unspecified, uncomplicated; F41.9 Anxiety disorder, unspecified; I10 Essential (primary) hypertension; Z79.899 Other long term (current) drug therapy; Z79.2 Long term (current) use of antibiotics; Z79.1 Long term (current) use of non-steroidal anti-inflammatories (NSAID)
CPT/HCPCS: 81002; 81025; 96372; 99283; J1885; Q0162; Q0177